=== PATIENT | female | born 1975 | race Two or more races ===

== ENCOUNTER 2019-07-06 05:37 | Day surgery (SDC) | payer OTHER ==
[~2019-07-06 05:37] MED LIST: ALEVE220 M1 PO; FLEXERIL
[2019-07-06] MEDS ORDERED: PERCOCET 5-3251 EACH PO (10:16)
[2019-07-06] MEDS ORDERED: RECTICARE30 GM TOP (10:16)
== END 2019-07-06 14:05 | disposition home or self-care (01) ==
LOC: CIR.AMB 05:37
DX: K60.1 Chronic anal fissure (principal); K64.4 Residual hemorrhoidal skin tags

== ENCOUNTER 2019-07-09 19:56 | Emergency (ER) | payer OTHER ==
[~2019-07-09] VITALS: Ht 154.9 cm; Wt 47.6 kg
[~2019-07-09 19:56] MED LIST changes: +PERCOCET 5-3251 EACH PO; +RECTICARE30 GM TOP
== END 2019-07-10 02:26 | disposition home or self-care (01) ==
LOC: ER 19:56
DX: G89.18 Other acute postprocedural pain (principal); K62.89 Other specified diseases of anus and rectum

== ENCOUNTER 2019-08-15 07:30 | Day surgery (SDC) | payer OTHER ==
[~2019-08-15 07:30] MED LIST changes: +ORENCIA50 MG/0.4
== END 2019-08-15 16:20 | disposition home or self-care (01) ==
LOC: CIR.AMB 07:30 → ADM 08:45 → CIR.AMB 08:45
PROVIDERS: ATTEND Orthopaedic Surgery Hand Surgery
DX: M65.231 Calcific tendinitis, right forearm (principal)

== ENCOUNTER 2023-02-25 05:37 | Inpatient (IN) | payer OTHER ==
[2023-02-11 09:33] LABS: PH,URINE 5.5 (5.0-8.0); URINE APPEARANCE Clear; URINE BILIRRUBIN Negative (NEGATIVE); URINE BLOOD Small; URINE COLOR Yellow; URINE GLUCOSE Negative (NEGATIVE); URINE LEUKOCYTE Negative; URINE NITRATE Negative; URINE PROTEIN Negative (NEGATIVE); URINE UROBILINOGEN 0.2 E.U./dl
[2023-02-11 09:36] LABS: HEMATOCRIT 39.1 % (36.0-45.00); HEMOGLOBIN 13.7 g/dL (12.0-15.00); MEAN CELL VOLUME 91.2 fL (80.00-100.00); PLATELET COUNT 267 K/uL (150-450); RED BLOOD COUNT 4.28 M/uL (4.00-6.00); RED CELL DISTRIBUTION WIDTH 12.9 % (11.5-14.5)
[2023-02-11 09:38] LABS: URINE BACTERIA 2353.5 uL (0.0-1933); URINE EPITHELIAL CELLS 25.8 uL (0.0-38.8); URINE WBC 14.8 uL (0.0-23.2)
[2023-02-11 10:11] LABS: INR 1.07; PARTIAL THROMBOPLASTIN TIME 27.4 SECONDS (22.0-34.0); PROTHROMBIN TIME 11.2 SECONDS (9.0-11.5)
[2023-02-11 10:14] LABS: CALCIUM 9.2 mg/dL (8.5-10.1); CREATININE SERUM 0.77 mg/dL (0.55-1.02); GFR 79.67; POTASSIUM 3.91 mEq/L (3.5-5.1)
[~2023-02-25] VITALS: Ht 154.9 cm; Wt 52.6 kg
[~2023-02-25 05:37] MED LIST changes: +CATAFLAN PO; +MEDROL4 MG PO; +PLAQUENIL PO; +ZANAFLEX4 M1 PO
[2023-02-26] MEDS ORDERED: DICLOFENAC SODI50 MG PO (08:38)
[2023-02-26] MEDS ORDERED: HYDROXYCHLOROQ200 MG PO (08:39)
[2023-02-26] MEDS ORDERED: DICLOFENAC POTA50 MG PO (08:39)
[2023-02-26] MEDS ORDERED: CYCLOBENZAPRINE5 MG PO (15:43)
[2023-02-26] MEDS ORDERED: TRAMADOL HCL50 MG PO (15:43)
== END 2023-02-26 13:43 | disposition home or self-care (01) | DRG 627 ==
LOC: CIR.AMB 05:37 → AMB-ENDOS 08:05 → O/R 09:59 → SURH 10:05 → CIR.AMB 10:44 → SURH 02-26 13:43
PROVIDERS: ADMIT Otolaryngology; ATTEND Otolaryngology
PROC: 0GTG0ZZ Resection of Left Thyroid Gland Lobe, Open Approach (ICD-10-PCS; principal; 2023-02-25 07:45)
DX: E04.1 Nontoxic single thyroid nodule (principal); Z20.822 Contact with and (suspected) exposure to COVID-19